=== PATIENT | female | born 1955 | race Caucasian/White ===

== ENCOUNTER 2025-02-11 06:01 | Day surgery (SDC) | payer MEDICARE ==
--- NOTE | 2025-02-06 15:05 | ELECTROCARDIOGRAPH REPORT ---
[facility] Test Date: 2025-02-06 Test Time: 15:02:29 Pat Name: HAZEL STUART Department: [facility]-PRE-OP Patient ID: [facility]-[id number] Room: Gender: F Business Development Manager: BAYLEE : 1955 Requested By: MANI HAIDER Order Number: [id number] Reading MD: Dr. OMEGA Dotson Measurements Intervals [place] Rate: 74 P: 17 WI: 155 QRS: 5 QRSD: 95 T: 42 QT: 390 QTc: 433 Interpretive Statements Sinus rhythm Electronically Signed On 02-09-2025 15:05:[address] OMEGA Dotson Please click the below link to view image of tracing.
[2025-02-06 15:30] LABS: BASOPHILS # (AUTO) 0.1 X10'3 (0-0.2); BASOPHILS % (AUTO) 0.5 % (0-1); EOSINOPHILS # (AUTO) 0.2 X10'3 (0-0.9); EOSINOPHILS % (AUTO) 2.2 % (0-6); LYMPHOCYTES # (AUTO) 1.2 X10'3 (1.1-4.8); LYMPHOCYTES % (AUTO) 10.6 % (21-51); MEAN CORPUSCULAR HEMOGLOBIN 31.1 PG (27.0-31.0); MEAN CORPUSCULAR HGB CONC 33.9 g/dL (33.0-36.5); MEAN CORPUSCULAR VOLUME 91.5 FL (78-98); MEAN PLATELET VOLUME 7.4 FL (7.4-10.4); MONOCYTES # (AUTO) 0.9 X10'3 (0-0.9); MONOCYTES % (AUTO) 7.7 % (2-12); PRE OP HEMOGLOBIN 12.2 g/dL (12.0-16.0); PRE OP PLATELET COUNT 452 X10'3 (140-440); PRE OP WHITE BLOOD COUNT 11.4 10'3 (4.8-10.8); RED BLOOD COUNT 3.93 X10'6 (4.20-5.60); RED CELL DISTRIBUTION WIDTH 13.5 % (11.5-14.5)
[2025-02-06 15:57] LABS: ALBUMIN 3.7 G/DL (3.4-5.0); ALKALINE PHOSPHATASE 107 IU/L (46-116); BLOOD UREA NITROGEN 20 MG/DL (7-18); BUN/CREATININE RATIO 12.7 (10.0-20.0); CALCIUM 8.3 MG/DL (8.5-10.1); CHLORIDE 109 MMOL/L (99-107); CREATININE 1.57 MG/DL (0.40-0.90); PRE OP BILIRUB, TOTAL 0.3 MG/DL (0.0-1.0); TOTAL CARBON DIOXIDE 25.2 MMOL/L (24-32); TOTAL PROTEIN 7.3 G/DL (6.4-8.2); eGFR 32 ML/MIN
[2025-02-06 17:04] LABS: PRE OP ALT 22 U/L (30-65); PRE OP ANION GAP 12 (8-16); PRE OP AST 19 U/L (10-37); PRE OP GLUCOSE 141 MG/DL (70-104); PRE OP SODIUM 146 MMOL/L (135-145)
[2025-02-11] VITALS (9 sets, daily range): BP systolic 101–169; BP diastolic 60–84; PULSE 66–74; RESP 14–16; TEMP 98.4; O2SAT 92–97
[~2025-02-11] VITALS: Ht 162.6 cm; Wt 99.8 kg
[2025-02-11] MEDS: DOCUMENT DATE & TIME OF BETA-BLOCKER PO ONE (05:00)
[~2025-02-11 06:01] MED LIST: ALBU18HF2 INH; AMLO10TA13 PO; APIX5TAB3 PO; ATEN-236 PO; ATOR-2 PO; EMPA10TA PO; GABA-530 PO; HYDR12.55 PO; IPRA3AMP31 INH; LEVO200T PO; LEVO50TA PO; LIOT25TA12 PO; LOSA50TA64 PO; MONT-40 PO; PANT40TA54 PO
[2025-02-11] MEDS: ringers solution, lacted 1,000 ML IV SCH (07:28)
[2025-02-11] MEDS: famotidine 20mg tablet PO ONE (07:28)
[2025-02-11] MEDS: VANCOMYCIN/H2O 1.5g/300mL PB 300 ML IV ONE (07:29)
[2025-02-11] MEDS ORDERED: ceFAZolin 2gm in dextrose, iso 50 ML IV ONE (07:58)
[2025-02-11] MEDS ORDERED: BUPIVAcaine 2.5mg/ml inj 50ml vial (contains preservative) ONE (08:05)
[2025-02-11] MEDS ORDERED: fentaNYL/PF 50MCG/1 ML 2ML syringe ONE (09:54)
[2025-02-11] MEDS ORDERED: midazolam 1 mg/ML 2ml injection ONE (09:55)
[2025-02-11] MEDS ORDERED: propofol inj 20 ML IV ONE (10:01)
[2025-02-11] MEDS ORDERED: LIDOcaine 2% (20mg/ml) 5ml vial ONE (10:01)
[2025-02-11] MEDS ORDERED: ondansetron/PF 4mg/2ml inj ONE (10:02)
[2025-02-11] MEDS ORDERED: dexamethasone sod phosphate 4mg/ml inj. ONE (10:02)
[2025-02-11] MEDS ORDERED: sevoflurane 250ml liquid IH ONE (10:15)
[2025-02-11] MEDS ORDERED: ketorolac trometh 30MG/ML vial 30 MG/ML VIAL ONE (10:28)
[2025-02-11] MEDS ORDERED: hydrALAZINE 20mg/ml inj. IV PRN (10:30)
[2025-02-11] MEDS ORDERED: morphine 2 MG/ML inj. syringe IV PRN (10:30)
[2025-02-11] MEDS ORDERED: ringers solution, lacted 1,000 ML IV SCH (10:30)
[2025-02-11] MEDS ORDERED: labetalol 20mg/4ml (5mg/ml) syringe IV PRN (10:30)
[2025-02-11] MEDS ORDERED: fentaNYL/PF 50MCG/1 ML 2ML syringe IV PRN ×2 (10:30)
[2025-02-11] MEDS ORDERED: ondansetron/PF 4mg/2ml inj IV PRN (10:30)
[2025-02-11] MEDS ORDERED: morphine 4 MG/ML inj SYRINge IV PRN (10:30)
--- NOTE | 2025-02-11 11:00 | OPERATIVE REPORT ---
Operative Report Providers to ~ Date of Procedure: February 11, 2025 Pre-Operative Diagnosis: Right carpal tunnel syndrome Post-Operative Diagnosis SAME as PRE-Op Procedure Performed Right carpal tunnel release Surgeon: Cosme Haider MD Professional [employer] None Anesthesiologist: Lázaro Hinojosa Type of Anesthesia: General Findings: Thickened right transverse carpal ligament. Complete release of the ligament was performed. Nerve was visualized both proximally and distally. Good blood flow to the nerve returned after the tourniquet was released. Complications None Prosthetics\Implants used: None Estimated Blood Loss: Minimal. Tourniquet time was 8 minutes at 250 mmHg Specimen Removed: None Description of Procedure: Patient is brought to the operating. Placed in a supine position. Preoperative antibiotics of 2 g of Ancef were given. Patient had no reaction. General anesthesia was performed. Patient will was maintained supine. Bony prominences were well padded. Bilateral lower extremity SCDs were placed. A tourniquet was placed high in the right upper extremity and the right upper extremity was prepped and draped in the usual sterile fashion. A time-out procedure was performed as per routine identifying the patient, site to be operated on, and procedure to be performed. At the beginning of the case I marked out my typical surgical incision. Esmarch tourniquet was used to exsanguinate the limb and tourniquet was inflated to 250 mmHg. I then confirmed we are operating on the right side. An incision was made between the thenar and hypothenar eminences. Sharp dissection was carried out through skin. Blunt dissection was carried out through the superficial palmar fascia. I did this until I reached the transverse carpal ligament. Good identification of the ligament was achieved. I then made a small ge in the superficial fibers of the ligament using a clean 15 blade. I then entered the ligament with a blunt [place] elevator and swept the nerve away. I then used a [place] elevator as a backing and then used a clean 15 blade to split a portion of the tendon using the [place] as a protector. I then repeated this process until I released the ligament all the way distally. Care was taken not to go into the superficial palmar arch. I then turned my attention proximally. A retractor was placed. I then did the same type of released using scissors until I completely released the transverse ligament proximally. I then used a [place] elevator and palpated all along the tendon carefully to ensure there was no stenotic areas. Once I was happy with the release, tourniquet was let down at 8 minutes of tourniquet time. The wound was irrigated with copious amounts of saline. Adequate hemostasis was obtained. The wound was closed with 4-0 nylon suture in a horizontal mattress pattern. 5 cc of 0.25% plain Marcaine was used for local anesthesia. Sterile dressings were applied. Wrist was protected with a volar wrist splint. Patient was thereafter recovered without complications and sent to recovery in good condition. Counts repoted as correct: Yes X-Ray findings: Per PAT Cond no x-ray COSME HAIDER MD February 11, 2025 11:00
== END 2025-02-11 10:36 | disposition home or self-care (01) ==
LOC: PAS 06:01
PROVIDERS: ATTEND Specialist
DX: G56.01 Carpal tunnel syndrome, right upper limb (principal); J44.9 Chronic obstructive pulmonary disease, unspecified; I10 Essential (primary) hypertension; E11.9 Type 2 diabetes mellitus without complications; M17.0 Bilateral primary osteoarthritis of knee; F41.9 Anxiety disorder, unspecified; Z96.643 Presence of artificial hip joint, bilateral; E78.5 Hyperlipidemia, unspecified; E03.9 Hypothyroidism, unspecified; K21.9 Gastro-esophageal reflux disease without esophagitis; Z98.890 Other specified postprocedural states; Z79.899 Other long term (current) drug therapy; Z88.0 Allergy status to penicillin; Z86.73 Personal history of transient ischemic attack (TIA), and cerebral infarction without residual deficits; Z90.5 Acquired absence of kidney
CPT/HCPCS: 36415; 64721; 80053; 82948; 85025; 93005; A6222; A6402; A6449; A7000; J0131; J1100; J1885; J2003; J2250; J2405; J2704; J3010; J3372; J3490; J7030; J7120; Z7506; Z7512; Z7610